=== PATIENT | male | born 1950 ===

== ENCOUNTER → 2025-07-02 13:39 | Outpatient (BNVA) | payer MEDICARE, SELFPAY | PROVIDERS: PCP Internal Medicine; Referring Provider Internal Medicine; Visit Provider Internal Medicine Pulmonary Disease | DX: J44.9 Chronic obstructive pulmonary disease, unspecified (principal); R06.00 Dyspnea, unspecified; R41.0 Disorientation, unspecified; Z72.0 Tobacco use | CPT/HCPCS: 99205; 94618; 36415 ==

== ENCOUNTER 2025-07-02 14:59 | Outpatient (REF) | payer MEDICARE, SELFPAY ==
[2025-07-02 16:11] LABS: Abs Immature Grans 0.13 10^3/uL (0.0-0.06); HCT 43.3 % (40.0-50.0); HGB 15.0 g/dL (13.5-17.5); Immature Grans % 0.9 %; MCH 33.2 pg (27.0-33.0); MCHC 34.6 % (32.0-36.0); MCV 96 fL (80-95); MPV 9.2 fL (8.0-11.0); Platelet Count 381 10^3/uL (130-400); RBC 4.52 10^6/uL (4.36-5.78); RDW 13.4 % (11.8-14.1); RDW-SD 47.7 fL; WBC 14.11 10^3/uL (4.4-10.8)
[2025-07-02 16:58] LABS: Folate 15.5 ng/mL (8.6-20.0); Vitamin B12 544 pg/mL (193-986)
== END 2025-07-02 15:00 | disposition home or self-care (01) ==
LOC: LBN 14:59
PROVIDERS: PCP Internal Medicine; Visit Provider Internal Medicine Pulmonary Disease
DX: R06.00 Dyspnea, unspecified (principal)
CPT/HCPCS: 82607; 82746; 85025

== ENCOUNTER 2025-07-04 03:55 | Outpatient (CLI) | payer MEDICARE, SELFPAY ==
[2025-07-04] MEDS: Inhaler, Assist Device 1 EACH MC (15:31)
[2025-07-04] MEDS: Levalbuterol HFA 15 GM INH 4 PUFF IH (15:32)
--- NOTE | 2025-07-05 08:02 | W.PFT ---
Date of service: 07/04/25 Time of Service: 09:39 Pulmonary Function Test Result Indications: Dyspnea Impression 1. Good patient effort was noted. ATS standards for reproducibility were met. 2. Spirometry showed moderate obstructive lung disease with an FEV1 of 61% (1.55 L) 3. Following the administration of a bronchodilator there was not a significant response 4. TLC and RV were elevated, consistent with air trapping 5. DLCO was 60%, consistent with a moderate defect in alveolar gas exchange
== END 2025-07-04 03:56 | disposition home or self-care (01) ==
LOC: RT 03:55
PROVIDERS: PCP Internal Medicine; Visit Provider Internal Medicine Pulmonary Disease
DX: J44.9 Chronic obstructive pulmonary disease, unspecified (principal); R06.00 Dyspnea, unspecified
CPT/HCPCS: 94060; 94726; 94729

== ENCOUNTER → 2025-08-16 15:05 | Outpatient (BNVA) | payer MEDICARE, SELFPAY | PROVIDERS: PCP Internal Medicine; Referring Provider Internal Medicine; Visit Provider Internal Medicine Pulmonary Disease | DX: J44.9 Chronic obstructive pulmonary disease, unspecified (principal); R06.00 Dyspnea, unspecified; F17.211 Nicotine dependence, cigarettes, in remission | CPT/HCPCS: 99214; G0296 ==